=== PATIENT | male | born 1990 | race Caucasian/White ===

== ENCOUNTER 2018-02-11 14:07 | Emergency (ER) | payer MEDICAID ==
[2018-02-11] MEDS ORDERED: KETOROLAC 30 MG INJ IM (15:06)
[2018-02-11] MEDS: KETOROLAC 60 MG INJ IM (15:22)
[2018-02-11] MEDS: ACETAMINOPHEN 325 MG TAB PO (16:07)
== END 2018-02-11 16:38 | disposition home or self-care (01) ==
LOC: FTE 14:07
DX: J02.0 Streptococcal pharyngitis (principal); Z87.891 Personal history of nicotine dependence
CPT/HCPCS: 87880; 96372; 99284-25